=== PATIENT | female | born 1985 | race Two or more races ===

== ENCOUNTER 2017-10-24 08:11 | Emergency (ER) | payer MEDICAID ==
[~2017-10-24] VITALS: Ht 165.1 cm; Wt 70.8 kg
[2017-10-24 08:26] VITALS: BP 136/80
[2017-10-24] MEDS ORDERED: IBUPROFEN 800 MG TAB PO ONE (09:00)
== END 2017-10-24 09:52 | disposition home or self-care (01) ==
LOC: ER 08:11
DX: S29.011A Strain of muscle and tendon of front wall of thorax, initial encounter (principal); S46.911A Strain of unspecified muscle, fascia and tendon at shoulder and upper arm level, right arm, initial encounter; Z88.0 Allergy status to penicillin; Z88.1 Allergy status to other antibiotic agents; V43.52XA Car driver injured in collision with other type car in traffic accident, initial encounter; Y93.89 Activity, other specified; Y92.410 Unspecified street and highway as the place of occurrence of the external cause; Y99.8 Other external cause status
CPT/HCPCS: 71046